=== PATIENT | female | born 1985 | race Caucasian/White ===

== ENCOUNTER → 2020-05-26 | Outpatient (CLI) | payer OTHER ==
[2020-05-26 18:37] LABS: HEMOGLOBIN 13.6 gm/dl (12.3-15.3); RED BLOOD COUNT 4.58 M/UL (4.00-5.10); WHITE BLOOD COUNT 10.1 K/UL (4.5-11.0)
[2020-05-26 18:55] LABS: BUN/CREATININE RATIO 25 (0-10)
== END ==
LOC: LAB 17:14
PROVIDERS: Nurse Practitioner Family
DX: Z51.81 Encounter for therapeutic drug level monitoring (principal); M25.561 Pain in right knee; Z79.1 Long term (current) use of non-steroidal anti-inflammatories (NSAID); Z79.899 Other long term (current) drug therapy; L40.50 Arthropathic psoriasis, unspecified; R53.83 Other fatigue; M47.815 Spondylosis without myelopathy or radiculopathy, thoracolumbar region; M17.11 Unilateral primary osteoarthritis, right knee
CPT/HCPCS: 36415; 72072; 72100; 73560; 80053; 84436; 84439; 84443; 85025; 85652; 86140

== ENCOUNTER → 2020-06-05 | Outpatient (CLI) | payer OTHER ==
[~2020-06-05] VITALS: Ht 180.3 cm; Wt 167.8 kg
== END ==
LOC: OPSV 07:00
DX: L40.50 Arthropathic psoriasis, unspecified (principal)
CPT/HCPCS: 96365; 96375; J1602; J2920

== ENCOUNTER → 2020-07-31 | Outpatient (CLI) | payer OTHER ==
[~2020-07-31] VITALS: Ht 180.3 cm; Wt 167.8 kg
== END ==
LOC: OPSV 07:00
DX: L40.50 Arthropathic psoriasis, unspecified (principal)
CPT/HCPCS: 96365; 96375; J1602; J2920

== ENCOUNTER → 2020-10-02 | Outpatient (CLI) | payer OTHER ==
[~2020-10-02] VITALS: Ht 180.3 cm; Wt 167.8 kg
== END ==
LOC: OPSV 09-25 07:00
DX: L40.50 Arthropathic psoriasis, unspecified (principal)
CPT/HCPCS: 96365; 96375; J1602; J2920

== ENCOUNTER → 2020-11-27 | Outpatient (CLI) | payer OTHER ==
[~2020-11-27] VITALS: Ht 180.3 cm; Wt 167.8 kg
== END ==
LOC: OPSV 07:00
DX: L40.50 Arthropathic psoriasis, unspecified (principal)
CPT/HCPCS: 96365; 96375; J1602; J2920

== ENCOUNTER → 2021-02-06 | Outpatient (CLI) | payer OTHER ==
[~2021-02-06] VITALS: Ht 180.3 cm; Wt 167.8 kg
== END ==
LOC: OPSV 09:00
DX: L40.50 Arthropathic psoriasis, unspecified (principal)
CPT/HCPCS: 96365; 96375; J1602; J2920